=== PATIENT | female | born 1975 | race Caucasian/White ===

== ENCOUNTER → 2021-10-03 07:01 | Outpatient (CLI) | payer OTHER, SELFPAY ==
--- NOTE | ~2021-10-03 | MM_ITS ---
EXAMINATION: MM screening [facility] BI w a[facility] HISTORY: Screening mammogram TECHNIQUE: Craniocaudal and mediolateral oblique 3-D tomosynthesis images were obtained and synthetic 2-D images were generated. CAD analysis was submitted and interpreted. COMPARISON: 12/03/2018 bilateral diagnostic mammogram 11/14/2018 bilateral screening mammogram BREAST PARENCHYMAL COMPOSITION: There are scattered areas of fibroglandular density. FINDINGS: There is no evidence of suspicious mass, calcification, or architectural distortion to sugg est malignancy in either breast. There has been no suspicious interval change. IMPRESSION: 1. No mammographic evidence of malignancy. 2. Recommend routine screening mammography in one year. BI-RADS Category 1: Negative Reviewed, dictated and finalized at location A. M PROJECT MANAGER
== END ==
PROVIDERS: PCP Family Medicine; Visit Provider Family Medicine
DX: Z12.31 Encounter for screening mammogram for malignant neoplasm of breast (principal)
CPT/HCPCS: 77063; 77067

== ENCOUNTER 2022-10-23 08:45 | Outpatient (CLI) | payer OTHER, SELFPAY ==
[2022-10-23 09:24] LABS: Cholesterol 232 mg/dL (0-200); HDL Direct 68 mg/dL; Triglycerides 158 mg/dL (<150)
[2022-10-23 09:34] LABS: LDL Cholesterol Direct 107 mg/dL
== END 2022-10-23 08:46 | disposition home or self-care (01) ==
LOC: ANHLAB 08:49
PROVIDERS: PCP Family Medicine; Visit Provider Family Medicine
DX: E78.5 Hyperlipidemia, unspecified (principal); E03.9 Hypothyroidism, unspecified
CPT/HCPCS: 36415; 80061; 84443